=== PATIENT | female | born 1975 | race Caucasian/White ===

== ENCOUNTER → 2017-09-23 10:57 | Outpatient (CLI) | payer OTHER, SELFPAY ==
[2017-09-23 13:12] LABS: Free T4, Direct Thyroxine 1.47 ng/dL (0.78-2.19)
[2017-09-23 13:26] LABS: Thyroid Stimulating Hormone 1.06 uIU/mL (0.47-4.68)
== END ==
PROVIDERS: PCP Family Medicine; Visit Provider Family Medicine
DX: E03.9 Hypothyroidism, unspecified (principal)
CPT/HCPCS: 36415; 84439; 84443

== ENCOUNTER → 2018-07-23 08:36 | Outpatient (CLI) | payer OTHER, SELFPAY ==
[2018-07-23 10:21] LABS: Cholesterol 228 mg/dL (140-199); HDL Cholesterol 103 mg/dL (40-60); LDL Cholesterol Calculated 114 mg/dL (<100); Triglycerides 55 mg/dL (35-150)
[2018-07-23 12:19] LABS: Free T3, Triiodothyronine Free 3.94 pg/mL (2.77-5.27); Free T4, Direct Thyroxine 1.33 ng/dL (0.78-2.19)
== END ==
PROVIDERS: PCP Family Medicine; Visit Provider Hospitalist
DX: E78.5 Hyperlipidemia, unspecified (principal); E03.9 Hypothyroidism, unspecified
CPT/HCPCS: 36415; 80061; 84439; 84443; 84481

== ENCOUNTER 2019-11-02 08:18 | Emergency (ER) | payer OTHER, SELFPAY ==
--- NOTE | 2019-11-02 08:27 | ED_ITS ---
HPI - Syncope General Chief Complaint: Syncope Stated Complaint: Syncope, injured left eye Time Seen by Provider: 11/02/19 08:20 Source: patient and family Mode of arrival: Ambulatory Limitations: no limitations History of Present Illness HPI narrative: 44-year-old female nonsmoker with history of hypothyroidism pre sents with a friend in the chief complaint of a syncopal episode this morning. She states she has been in her normal state of health and denies any dietary change or new medications. She has had no fever chills nor any nausea, vomiting or diarrhea. She has an IUD in place and does not have regular menses but denies any vaginal bleeding or discharge. She has had no chest pain, shortness of breath or palpitations. She states that she got up to use the bathroom and started feeling a bit lightheaded and got sweaty and felt nauseated and then woke up laying on the ground having struck her head on something and now has a laceration above her left eye. She denies any ongoing symptoms. She is able to see out of her left eye without any difficulty. She is at her neurologic baseline per family. Her friend at the bedside states on multiple occasions that the patient has been overdoing it, very busy with a ?full plate ?for many months and questions whether not that is contributing. Related Data Home Medications Medication Instructions Recorded Confirmed Fish Oil (#FISH OIL) 1 iu PO #0 12/03/10 11/01/17 biotin 2,500 mcg capsule 2,500 mcg PO DAILY 07/19/18 07/19/18 levothyroxine 88 mcg capsule 88 mcg PO DAILY 07/19/18 07/19/18 levothyroxine 88 mcg tablet 88 mcg PO DAILY 12/18/18 11/02/19 Allergies Allergy/AdvReac Type Severity Reaction Status Date / Time No Known Drug Allergies Allergy Verified 11/02/19 09:03 Review of Systems Constitutional Constitutional: Denies chills, Denies fatigue, Denies fever(s), Denies frequent falls, Denies lethargy and Denies weakness Eyes Eyes: Denies change in vision, Denies eye discharge, Denies irritation and Denies loss of vision ENT Ears, Nose, Mouth, and Throat: Denies change in voice, Denies dizziness, Denies neck pain, Denies sore throat and Denies throat swelling Cardiovascular Cardiovascular: Denies chest pain, Reports syncope, Denies irregular heart rhythm, Reports lightheadedness, Denies palpitations, Denies dyspnea, Denies dyspnea on exertion and Denies orthopnea Respiratory Respiratory: Denies cough, Denies dyspnea, Denies dyspnea on exertion and Denies wheezing Gastrointestinal Gastrointestinal: Denies abdominal pain, Denies change in bowel habits, Denies diarrhea, Denies nausea and Denies vomiting Musculoskeletal Musculoskeletal: Denies neck pain and Denies numbness Integumentary/Breasts Skin/Breast: Denies pruritus, Denies erythema, Denies rash and Reports wounds Neurologic Neurologic: Denies behavioral changes, Denies confusion, Denies dizziness, Reports syncope, Denies frequent falls, Denies loss of vision, Denies numbness and Denies weakness Psychiatric Psychiatric: Denies anxiety, Denies behavioral changes, Denies confusion, Denies depression, Denies homicidal ideation and Denies suicidal ideation Endocrine Endocrine: Denies fatigue, Denies flushing and Denies palpitations Hematologic/Lymphatic Hematologic/Lymphatic: Denies easy bruising Allergic/Immunologic Allergic/Immunologic: Denies urticaria, Denies throat swelling and Denies wheezing Patient History Medical History (Updated 11/02/19 @ 10:27 by Maurice Jewell DO) Chicken pox (Resolved ~1984) Fibrocystic breast (Acute) HELLP syndrome (Acute) Hypothyroidism (Acute ~2012) Infertility (Inactive ~2010) Preeclampsia (Resolved ~2015) Skin cancer (Inactive ~2015) Surgical History (Updated 12/06/18 @ 20:29 by Irina Tadeo) Anesthesia (Resolved) History of repair of anterior cruciate ligament of left knee (Resolved ~2011) History of third molar tooth extraction (Resolved ~1992) In vitro fertilization (Resolved) Status post left foot surgery (Resolved ~2010) Family History (Updated 12/06/18 @ 20:33 by Irina Tadeo) Grandmother Cancer Grandfather Cancer Father Colon polyps Alcoholic Atrial fibrillation Mother Stroke Brother Hyperlipidemia Hypertension Grandfather History of heart disease Grandmother Cancer Social History Smoking Status: Never smoker Smoking Status: Never smoker Exam Initial Vital Signs Initial Vital Signs: Vital Signs Pulse Rate 64 11/02/19 08:40 Respiratory Rate 16 11/02/19 08:40 Pulse Oximetry 100 11/02/19 08:40 Course Orders Ordered: ED Orders 11/02/19 08:34 EKG-12 Lead Stat 11/02/19 08:48 Complete Blood Count AUTO DIFF Stat Thyroid Stimulating Hormone Stat 11/02/19 09:32 Basic Metabolic Panel Stat D Dimer Stat Magnesium Stat NT-proBNP (BNP-Adult 18+) Stat Troponin & CK Cardiac Panel Stat Discontinued Medications Sodium Chloride (Normal Saline 0.9%) 1,000 mls @ 1,000 mls/hr IV BOLUS ONE Stop: 11/02/19 09:33 Last Admin: 11/02/19 09:17 Dose: 1,000 mls/hr Documented by: YE Lidocaine/Sodium Bicarbonate (Buffered Lidocaine 10 Ml Syr) 10 ml INJ NOW ONE Stop: 11/02/19 09:45 Vital Signs Vital signs: Vital Signs - 8 hr 11/02/19 08:40 11/02/19 08:58 11/02/19 09:00 Temperature 97.8 F Pulse Rate 64 78 57 L Respiratory Rate 16 18 20 Blood Pressure 140/72 Pulse Oximetry 100 100 100 11/02/19 09:21 11/02/19 09:30 11/02/19 10:00 Temperature Pulse Rate 62 66 66 Respiratory Rate 22 15 23 Blood Pressure 117/71 Pulse Oximetry 100 100 MDM - Syncope Lab Data Result diagrams: 11/02/19 08:48 11/02/19 09:32 Labs: Lab Results 11/02/19 11/02/19 11/02/19 Range/Units 08:48 08:48 09:32 WBC 7.0 (4.5-11.0) X10^3/uL RBC 4.70 (4.0-5.2) X10^6/uL Hgb 14.5 (12.0-16.0) g/dL Hct 42.5 (36-46) % MCV 90.4 (80-100) fL MCH 30.8 (26-34) PG MCHC 34.0 (30-36) % RDW 13.0 (11.6-14.8) % Plt Count 157 (150-400) X10^3/uL Neut % (Auto) 66.7 (50-75) % Lymph % (Auto) 24.9 L (25-40) % [place] % (Auto) 5.8 (3-14) % Eos % (Auto) 1.9 L (2-4) % Baso % (Auto) 0.7 (0-2) % Neut # (Auto) 4700 (8940-6376) /uL Lymph # (Auto) 1700 (7585-3601) /uL [place] # (Auto) 400 (0-900) /uL Eos # (Auto) 100 (0-450) /uL Baso # (Auto) 100 (0-100) /uL D-Dimer 206 (<230) ng/mL Sodium (137-145) mmol/L Potassium (3.4-5.1) mmol/L Chloride (98-107) mmol/L Carbon Dioxide (22-32) mmol/L BUN (7-17) mg/dL Creatinine (0.52-1.04) mg/dL Estimated GFR (>60) mL/min BUN/Creatinine Ratio (6-22) Glucose (70-100) mg/dL Calcium (8.4-10.2) mg/dL Magnesium (1.6-2.3) mg/dL Total Creatine Kinase (30-135) U/L CK-MB (CK-2) (<2.37) ng/mL CK-MB (CK-2) Rel Index (1.5-5.0) % Troponin I (0.01-0.034) ng/mL NT-Pro-B Natriuret Pep (<125) pg/mL TSH 1.66 (0.47-4.68) uIU/mL 11/02/19 Range/Units 09:32 WBC (4.5-11.0) X10^3/uL RBC (4.0-5.2) X10^6/uL Hgb (12.0-16.0) g/dL Hct (36-46) % MCV (80-100) fL MCH (26-34) PG MCHC (30-36) % RDW (11.6-14.8) % Plt Count (150-400) X10^3/uL Neut % (Auto) (50-75) % Lymph % (Auto) (25-40) % [place] % (Auto) (3-14) % Eos % (Auto) (2-4) % Baso % (Auto) (0-2) % Neut # (Auto) (5246-4258) /uL Lymph # (Auto) (8658-1952) /uL [place] # (Auto) (0-900) /uL Eos # (Auto) (0-450) /uL Baso # (Auto) (0-100) /uL D-Dimer (<230) ng/mL Sodium 138 (137-145) mmol/L Potassium 4.1 (3.4-5.1) mmol/L Chloride 105 (98-107) mmol/L Carbon Dioxide 25 (22-32) mmol/L BUN 18 H (7-17) mg/dL Creatinine 0.76 (0.52-1.04) mg/dL Estimated GFR > 60.0 (>60) mL/min BUN/Creatinine Ratio 23.7 H (6-22) Glucose 106 H (70-100) mg/dL Calcium 9.0 (8.4-10.2) mg/dL Magnesium 2.2 (1.6-2.3) mg/dL Total Creatine Kinase 114 (30-135) U/L CK-MB (CK-2) 1.56 (<2.37) ng/mL CK-MB (CK-2) Rel Index 1.4 L (1.5-5.0) % Troponin I < 0.012 (0.01-0.034) ng/mL NT-Pro-B Natriuret Pep 76 (<125) pg/mL TSH (0.47-4.68) uIU/mL MDM Narrative Medical decision making narrative: Patient with a syncopal episode and prodromal symptoms. Largely at her baseline on arrival. Labs and exam are very reassuring. Multiple diagnoses including fatigue, dehydration, vagal episode thought much more likely. Seizure an arrhythmia considered but thought unlikely given history and physical. Return precautions given and questions answered to her apparent satisfaction. Discharge Plan Departure Patient Disposition: Home Clinical Impression: Syncope and collapse Face lacerations Qualifiers: Encounter type: initial encounter Qualified Code(s): S01.81XA - Laceration without foreign body of other part of head, initial encounter Instructions: DI for Syncope in Adults (Fainting), DI for Laceration Repair Activity Restrictions/Additional Instructions: *You have been diagnosed with [syncope with subsequent facial laceration] *What to do: *Take medications as directed *Follow up with your primary care provider in 2-3 days, call for an appointment. Let them know you were seen in the Emergency Department and that we ask that you be seen in follow up *Return to ER if you should have any new, worsening or concerning symptoms Please keep the wound clean and dry to the best of your ability. Please monitor for signs of infection such as redness to the skin or increasing pain. Have the sutures removed by your doctor in about 5-7 days. If you are unable to get into your doctor, we would be happy to remove the sutures in that same timeframe. Prescriptions: No Action Fish Oil (#FISH OIL) 1 iu PO Qty: 0 RF: 0 levothyroxine 88 mcg tablet 88 mcg PO DAILY RF: 0 biotin 2,500 mcg capsule 2,500 mcg PO DAILY RF: 0 levothyroxine 88 mcg capsule 88 mcg PO DAILY RF: 0 Referrals: Annabelle Oquendo MD [Primary Care Provider] -
[2019-11-02 08:40] VITALS: PULSE 64; RESP 16; O2SAT 100
[2019-11-02 08:58] VITALS: BP 140/72; PULSE 78; RESP 18; TEMP 36.6; O2SAT 100; BMI 20.7
[2019-11-02 09:00] VITALS: PULSE 57; RESP 20; O2SAT 100
[2019-11-02 09:16] LABS: Add Manual Diff / Slide Review SLIDE REVIEW; Basophils Absolute Auto 100 /uL (0-100); Basophils Percent Auto 0.7 % (0-2); Eosinophils Absolute Auto 100 /uL (0-450); Eosinophils Percent Auto 1.9 % (2-4); Hematocrit 42.5 % (36-46); Hemoglobin 14.5 g/dL (12.0-16.0); Lymphocytes Absolute Auto 1700 /uL (1100-4500); Lymphocytes Percent Auto 24.9 % (25-40); Mean Corpuscular Hemoglobin 30.8 PG (26-34); Mean Corpuscular Volume 90.4 fL (80-100); Monocytes Absolute Auto 400 /uL (0-900); Monocytes Percent Auto 5.8 % (3-14); Neutrophils Absolute Auto 4700 /uL (1500-7000); Neutrophils Percent Auto 66.7 % (50-75); Platelet Count 157 X10^3/uL (150-400)
[2019-11-02] MEDS: SODIUM CHLORIDE 0.9% 1,000 ML 1000 ML IV (09:17)
[2019-11-02 09:21] VITALS: BP 117/71; PULSE 62; PULSE 64; RESP 18; RESP 22; O2SAT 100; O2SAT 99
[2019-11-02 09:30] VITALS: PULSE 66; RESP 15
[2019-11-02 09:53] LABS: BUN Creatinine Ratio 23.7 (6-22); Blood Urea Nitrogen 18 mg/dL (7-17); Carbon Dioxide 25 mmol/L (22-32); Chloride 105 mmol/L (98-107); Creatine Kinase 114 U/L (30-135); D Dimer 206 ng/mL (<230); Estimated Glomerular Filt Rate > 60.0 mL/min (>60); Glucose 106 mg/dL (70-100); HEMOLYSIS < 15 (0-50); Magnesium 2.2 mg/dL (1.6-2.3); Potassium 4.1 mmol/L (3.4-5.1); Sodium 138 mmol/L (137-145)
[2019-11-02 10:00] VITALS: PULSE 66; RESP 23; O2SAT 100
[2019-11-02 10:05] LABS: NT-proBNP (BNP-Adult 18+) 76 pg/mL (<125); Troponin I < 0.012 ng/mL (0.01-0.034)
[2019-11-02 10:08] LABS: CKMB % Relative Index 1.4 % (1.5-5.0); Creatine Kinase MB 1.56 ng/mL (<2.37)
[2019-11-02 10:24] LABS: Thyroid Stimulating Hormone 1.66 uIU/mL (0.47-4.68)
[2019-11-02] MEDS: LIDO 1%/SOD BICARB 8.4% (10ML) 10 ML SYRINGE INJ (10:34)
[2019-11-02 10:59] LABS: RBC Morphology Normal Morphology
== END 2019-11-02 10:45 | disposition home or self-care (01) ==
PROVIDERS: Emergency Provider Emergency Medicine; PCP Family Medicine
DX: S01.81XA Laceration without foreign body of other part of head, initial encounter (principal); R55 Syncope and collapse; W18.30XA Fall on same level, unspecified, initial encounter
CPT/HCPCS: 36415; 80048; 82550; 82553; 83735; 83880; 84443; 84484; 85025; 85379; 93005; 96360; 99284

== ENCOUNTER → 2020-12-18 10:46 | Outpatient (CLI) | payer OTHER, SELFPAY ==
[2020-12-18 12:05] LABS: Cholesterol 204 mg/dL (140-199); HDL Cholesterol 108 mg/dL (40-60); LDL Cholesterol Calculated 85 mg/dL (<100); Triglycerides 54 mg/dL (35-150)
[2020-12-18 12:38] LABS: TSH w/ Reflex to FT4 0.97 uIU/mL (0.47-4.68)
== END ==
PROVIDERS: PCP Family Medicine; Referring Provider Family Medicine; Visit Provider Family Medicine
DX: Z13.220 Encounter for screening for lipoid disorders (principal); E03.9 Hypothyroidism, unspecified
CPT/HCPCS: 36415; 80061; 84443